=== PATIENT | female | born 1995 | race Caucasian/White ===

== ENCOUNTER 2017-03-31 08:34 | Emergency (ER) | payer OTHER ==
[~2017-03-31 08:34] MED LIST: CEL20 PO; CELEXA10 MG PO; COL100 PO; FER300 PO; FERROUS SULFAT325 M2 PO; MAGNESIUM OXID400 MG PO; NORCO1 TA2 PO; VITAMIN C500 M4 PO
[2017-03-31 09:36] LABS: BASOPHIL % 0.7 % (0-2)
[2017-03-31 09:37] LABS: microscopic required? YES; urine erythrocyte TRACE (NEGATIVE)
[2017-03-31 09:41] LABS: PLATELET COUNT 497 x10^3mcL (130-400); RED CELL DISTRIBUTION WIDTH 19.1 % (11.5-14.5)
[2017-03-31 09:42] LABS: rbc morphology (normal/abnorm) ABNORMAL (NORMAL)
[2017-03-31 09:48] LABS: ALBUMIN 3.5 g/dL (3.4-5.0); ALKALINE PHOSPHATASE 85 U/L (46-116); ALT/SGPT 17 U/L (14-59); AST/SGOT 13 U/L (15-37); BILIRUBIN TOTAL 0.36 mg/dL (0.20-1.00); CALCIUM 9.1 mg/dL (8.5-10.1); CARBON DIOXIDE 29.7 mmol/L (21-32); CHLORIDE SERUM 105 mmol/L (98-107); CREATININE SERUM 0.7 mg/dL (0.6-1.0); GFR1 > 60 mL/min; GLUCOSE SERUM 86 mg/dL (74-106); LIPASE 203 IU/L (73-393); SODIUM SERUM 146 mmol/L (136-145); TOTAL PROTEIN, SERUM 7.6 g/dL (6.4-8.2)
[2017-03-31 10:19] LABS: POTASSIUM SERUM 2.4 mmol/L (3.5-5.1)
[2017-03-31 14:16] LABS: CHOLESTEROL/HDL RATIO 3.3; MAGNESIUM 2.4 mg/dL (1.8-2.4); PHOSPHOROUS 4.1 mg/dL (2.5-4.9)
[2017-03-31 14:26] LABS: FREE T4 1.44 ng/dL (0.76-1.46); T4(THYROXINE) 12.1 ug/dL (4.7-13.3)
[2017-03-31 16:53] VITALS: BP 114/68
[2017-04-01 14:43] LABS: T3 TOTAL 1.57 ng/mL
== END 2017-03-31 16:53 | disposition left against medical advice (07) ==
LOC: ED 08:34 → DU 10:55 → ED 16:53
PROVIDERS: Emergency Medicine; Family Medicine
DX: E87.6 Hypokalemia (principal); E86.0 Dehydration; R11.2 Nausea with vomiting, unspecified; R19.7 Diarrhea, unspecified; K29.50 Unspecified chronic gastritis without bleeding
CPT/HCPCS: 83880; 84439; J2060; J2405; J3480; J7030; Q0092

== ENCOUNTER → 2017-07-31 | Outpatient (CLI) | payer OTHER ==
[2017-07-31 17:43] LABS: ALBUMIN 3.9 g/dL (3.4-5.0); ALKALINE PHOSPHATASE 103 U/L (46-116); ALT/SGPT 20 U/L (14-59); AST/SGOT 14 U/L (15-37); BILIRUBIN TOTAL 0.5 mg/dL (0.20-1.00); CALCIUM 8.9 mg/dL (8.5-10.1); CARBON DIOXIDE 29.5 mmol/L (21-32); CHLORIDE SERUM 105 mmol/L (98-107); CREATININE SERUM 0.7 mg/dL (0.6-1.0); GFR1 > 60 mL/min; GLUCOSE SERUM 89 mg/dL (74-106); SODIUM SERUM 143 mmol/L (136-145); TOTAL PROTEIN, SERUM 7.6 g/dL (6.4-8.2)
[2017-07-31 17:50] LABS: BASOPHIL % 0.5 % (0-2); RED BLOOD CELLS 4.81 M/mm3 (4.10-5.10)
[2017-07-31 17:51] LABS: T3 TOTAL 1.49 ng/mL
[2017-07-31 17:52] LABS: IRON 20 ug/dL (50-170); TOTAL IRON BINDING CAPACITY 453 ug/dL (250-450)
[2017-07-31 17:57] LABS: PLATELET COUNT 406 x10^3mcL (130-400); RED CELL DISTRIBUTION WIDTH 20.3 % (11.5-14.5)
[2017-07-31 18:17] LABS: POTASSIUM SERUM 2.4 mmol/L (3.5-5.1)
[2017-07-31 18:18] LABS: FREE T4 1.29 ng/dL (0.76-1.46); FREE THYROXINE INDEX 4.3 ug/dL (1.4-4.5); T4(THYROXINE) 13.3 ug/dL (4.7-13.3)
[2017-07-31 18:27] LABS: rbc morphology (normal/abnorm) ABNORMAL (NORMAL)
== END | disposition home or self-care (01) ==
LOC: LB 16:47
PROVIDERS: Family Medicine
DX: D64.9 Anemia, unspecified (principal); E87.6 Hypokalemia
CPT/HCPCS: 84439

== ENCOUNTER 2017-08-27 18:42 | Emergency (ER) | payer OTHER ==
[2017-08-27 19:05] VITALS: BP 110/65
== END 2017-08-27 20:57 | disposition home or self-care (01) ==
LOC: ED 18:42
DX: H61.21 Impacted cerumen, right ear (principal)

== ENCOUNTER 2017-10-09 13:24 | Emergency (ER) | payer OTHER ==
[~2017-10-09] VITALS: Ht 147.3 cm; Wt 37.3 kg
[2017-10-09 13:30] VITALS: Ht 147.3 cm; Wt 37.3 kg
[2017-10-09 14:12] LABS: BASOPHIL % 0.4 % (0-2)
[2017-10-09 14:15] LABS: PLATELET COUNT 444 x10^3mcL (130-400); RED CELL DISTRIBUTION WIDTH 17.6 % (11.5-14.5)
[2017-10-09 14:32] LABS: ALBUMIN 3.7 g/dL (3.4-5.0); ALKALINE PHOSPHATASE 81 U/L (46-116); ALT/SGPT 21 U/L (14-59); AST/SGOT 18 U/L (15-37); BILIRUBIN TOTAL 0.4 mg/dL (0.20-1.00); CALCIUM 8.4 mg/dL (8.5-10.1); CHLORIDE SERUM 103 mmol/L (98-107); CREATININE SERUM 0.8 mg/dL (0.6-1.0); GFR1 > 60 mL/min; GLUCOSE SERUM 109 mg/dL (74-106); LIPASE 260 IU/L (73-393); SODIUM SERUM 140 mmol/L (136-145); TOTAL PROTEIN, SERUM 7.1 g/dL (6.4-8.2)
[2017-10-09 14:34] LABS: POTASSIUM SERUM 2.6 mmol/L (3.5-5.1)
[2017-10-09 14:59] VITALS: BP 112/73
== END 2017-10-09 14:59 | disposition home or self-care (01) ==
LOC: ED 13:24
PROVIDERS: Emergency Medicine
DX: R10.9 Unspecified abdominal pain (principal); E87.6 Hypokalemia; R07.89 Other chest pain
CPT/HCPCS: 36415; J1885

== ENCOUNTER 2017-10-10 11:34 | Emergency (ER) | payer OTHER | END 2017-10-10 13:27 | disposition left against medical advice (07) | LOC: ED 11:34 | DX: Z53.21 Procedure and treatment not carried out due to patient leaving prior to being seen by health care provider (principal) ==

== ENCOUNTER 2017-11-17 19:08 | Emergency (ER) | payer MEDICAID ==
[~2017-11-17] VITALS: Ht 149.9 cm; Wt 38.5 kg
[2017-11-17 19:16] VITALS: BP 113/76; Ht 149.9 cm; Wt 38.5 kg
== END 2017-11-17 22:00 | disposition left against medical advice (07) ==
LOC: ED 19:08
DX: Z53.21 Procedure and treatment not carried out due to patient leaving prior to being seen by health care provider (principal)